=== PATIENT | female | born 1965 | race Caucasian/White ===

== ENCOUNTER → 2017-04-22 | Outpatient (CLI) | payer BC | END | disposition home or self-care (01) | LOC: GMAH 10:39 | PROVIDERS: ATTEND Family Medicine | DX: E78.2 Mixed hyperlipidemia (principal) ==

== ENCOUNTER → 2017-05-09 | Outpatient (CLI) | payer BC | END | disposition home or self-care (01) | LOC: MAMMO 10:15 | PROVIDERS: ATTEND Family Medicine | DX: Z12.31 Encounter for screening mammogram for malignant neoplasm of breast (principal) | CPT/HCPCS: G0202; G0279 ==

== ENCOUNTER → 2017-05-25 | Outpatient (CLI) | payer BC ==
--- NOTE | 2017-05-26 13:03 | US ---
EXAM DESCRIPTION: Breast,Right ultrasound CLINICAL HISTORY: 51 yearsFemaleABNORMAL MAMMOGRAM COMPARISON: Digital 2-D diagnostic mammogram right breast date Other TECHNIQUE: Transcutaneous scanning of the medial right, middle third breast utilizing two-dimensional and Doppler modes. Scanning performed by the market consultant and Dr. Mcknight. FINDINGS: On the initial scan by the market consultant, a 6 mm hypoechoic or anechoic lesion, partially well-defined borders was noted at the 300 clock position 6 cm from the nipple. Longest dimension 5 mm, parallel orientation with posterior mixed features. Nonvascular. Adjacent to this lesion, was a hypoechoic oval-shaped mass with well-defined borders, longest dimension eight millimeters in parallel orientation. Central echogenicity. Posterior mixed features. Nonvascular. After Dr. Mcknight observed the images on the unit, the right breast was rescanned at the same location. No solid or cystic lesions are noted. No intramuscular edema or soft tissue calcifications.. IMPRESSION: BI-RADS 3: PROBABLY BENIGN FINDING - Short Interval Follow-Up Suggested FOLLOW-UP: Short-interval (6-month) follow-up surveillance mammography, right breast. Targeted right breast ultrasound should also be repeated. The findings and the follow-up plan were reviewed in person with the patient after the examination. Written communication explaining the findings and follow-up, will be mailed to the patient and referring health care provider. Electronically signed by: Jf Mcknight MD 05/26/2017 1:01 PM CDT Workstation: [id number]
== END ==
LOC: US 13:01
PROVIDERS: ATTEND Family Medicine
DX: R92.8 Other abnormal and inconclusive findings on diagnostic imaging of breast (principal)

== ENCOUNTER → 2017-06-29 | Outpatient (CLI) | payer BC ==
--- NOTE | 2017-06-30 07:47 | CT ---
EXAM DESCRIPTION: CT ABDOMEN AND PELVIS WITHOUT AND WITH CONTRAST CLINICAL HISTORY: PELVIC AND PERINEAL PAIN COMPARISON: None Available. TECHNIQUE: CT of the abdomen and pelvis are performed prior to and during IV bolus administration of nonionic contrast. Oral contrast was not utilized. This exam was performed according to our departmental dose-optimization program, which includes automated exposure control, adjustment of the mA and/or kV according to patient size and/or use of iterative reconstruction technique. FINDINGS: The lung bases are clear. Noncontrast imaging demonstrates a large 2 cm laminated gallstone without evidence of acute inflammation or ductal dilation. No renal calculi are noted. Left colonic diverticulosis is apparent. Contrast enhanced examination demonstrates homogeneous enhancement of the liver with a small subcentimeter cyst in the inferior right lobe. The spleen and adrenal glands and pancreas are unremarkable. The kidneys cortically enhance without obstruction or cyst or mass. The aorta and vena cava and retroperitoneum are unremarkable. Large and small bowel caliber is normal. A normal appendix is apparent. Acute inflammation in the right lower quadrant or left lower quadrant is not apparent. An anteverted uterus and normal-appearing adnexal structures are noted within the pelvis without free pelvic or abdominal fluid. Layering contrast within the bladder on delayed imaging with normal renal collecting systems is noted. The anterior abdominal wall demonstrates no significant umbilical or inguinal hernia. Lumbar and lower thoracic spine are unremarkable. IMPRESSION: 1. 2 cm laminated gallstone within the gallbladder without acute inflammation. 2. Small subcentimeter benign right lobe hepatic cyst. 3. Mild left colonic diverticulosis. 4. Normal appearance in the pelvis with no abnormal fluid collection or mass seen. Electronically signed by: Gerson Ulrich MD 06/30/2017 7:46 AM CDT
== END ==
LOC: CT 08:06
PROVIDERS: ATTEND Obstetrics & Gynecology
DX: R10.2 Pelvic and perineal pain (principal); K80.80 Other cholelithiasis without obstruction; K76.89 Other specified diseases of liver; K57.30 Diverticulosis of large intestine without perforation or abscess without bleeding

== ENCOUNTER → 2017-08-29 | Emergency (ER) | payer BC ==
[~2017-08-29] MED LIST: HYDROmorphone HCL INJ 2 MG/ML VIAL IV ONE; ONDANSETRON INJ 4 MG/2 ML VIAL IV ONE; SODIUM CHLORIDE 0.9% 1000ML 1,000 ML IVS ONE
== END ==
LOC: ER 17:14
DX: K29.70 Gastritis, unspecified, without bleeding (principal); K80.50 Calculus of bile duct without cholangitis or cholecystitis without obstruction; I73.9 Peripheral vascular disease, unspecified
CPT/HCPCS: 36415; 80053; 82150; 83690; 85025; J1170; J2405; J7030

== ENCOUNTER → 2017-09-01 | Outpatient (CLI) | payer BC ==
--- NOTE | 2017-09-02 04:01 | US ---
EXAM DESCRIPTION: Abdomen,Complete CLINICAL HISTORY: RUQ PAIN COMPARISON: 06/29/2017 TECHNIQUE: Real-time sonographic images of the abdomen were obtained using a curved multihertz transducer. FINDINGS: The visualized portions of the pancreas are unremarkable. The visualized portions of the aorta and IVC are unremarkable. The liver has normal contour and echogenicity. The common bile duct measures 0.3 cm. cm. 0.9 cm cyst in the right hepatic lobe. Echogenic structure with posterior shadowing measuring 2.1 cm compatible with a gallstone. Normal wall thickness. No pericholecystic fluid. Negative reported sonographic Mcnamara sign. The right kidney measures 12.8 cm in length. The left kidney measures 12.1 cm in length. No solid renal mass, shadowing renal calculi, or hydronephrosis. The spleen measures 9.9 cm in length.No abnormality of the spleen identified. IMPRESSION: 1. Cholelithiasis without other sonographic evidence of acute cholecystitis. Electronically signed by: Jose Liu 09/02/2017 4:00 AM CORRECTIONAL CAPTAIN
== END | disposition home or self-care (01) ==
LOC: US 07:55
PROVIDERS: ATTEND Family Medicine
DX: R10.11 Right upper quadrant pain (principal)

== ENCOUNTER → 2019-01-31 | Outpatient (CLI) | payer BC ==
--- NOTE | 2019-02-02 10:16 | MAM ---
EXAM DESCRIPTION: 3D Screening BILATERAL : Digital Mammography. CLINICAL HISTORY: 53 years Female ANNUAL SCREENING . No complaints. No personal or family history of breast cancer. Childbirth. Hysterectomy 3 years ago. No HRT. Lifetime risk of developing breast cancer (Tyrer-Cuzick model)(%): 5.9. COMPARISON: Bilateral screening digital breast tomosynthesis 05/09/2017. Category 0, but patient did not return to this facility for follow-up. TECHNIQUE: Bilateral CC and MLO projection full-field images, digital tomosynthesis mammographic technique. Bilateral digital 2-D full-field MLO images. CAD not available for tomosynthesis or 2-D images. FINDINGS: The breast parenchymal density pattern is: Scattered areas of fibroglandular density. No skin thickening or nipple retraction. The focal mass density seen in the lower inner quadrant of the anterior third of the right breast on the prior study has decreased in size and is now mostly calcified. 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 Bilateral axillary lymph nodes. Bilateral solitary microcalcifications. No new focal, stellate mass or density, focal asymmetry , and no suspicious microcalcifications bilaterally. Stable mammograms compared to prior study. Taking into account, differences in mammographic technique. IMPRESSION: Benign exam. BIRAD CATEGORY: 2 BENIGN FINDINGS. RECOMMENDATIONS: FOLLOW UP: Routine digital bilateral mammographic screening, one year interval from January 2019. Written communication explaining the IMPRESSION and follow-up, will be mailed to the patient and referring health care provider. According to the [employer], yearly mammograms are recommended starting at age 40 and continuing as long as a woman is in good health. Any breast change noted on a breast self-exam should be reported promptly to the patient's healthcare provider. Breast MRI is recommended for women with an approximately 20-25% or greater lifetime risk of breast cancer, including women with a strong family history of breast or ovarian cancer and women who have been treated for Hodgkin's disease. A negative mammographic report should not delay tissue diagnosis in patients with significant clinical history or physical findings. Extremely dense breast tissue limits the sensitivity of digital mammography. Electronically signed by: Jf Mcknight MD 02/02/2019 10:14 AM CDT
== END ==
LOC: MAMMO 10:43
PROVIDERS: ATTEND Family Medicine
DX: Z12.31 Encounter for screening mammogram for malignant neoplasm of breast (principal)